=== PATIENT | male | born 1970 | race Caucasian/White ===

== ENCOUNTER 2021-09-12 09:39 | Emergency (ER) | payer MEDICAID ==
[~2021-09-12] VITALS: Ht 177.8 cm; Wt 84.8 kg
--- NOTE | 2021-09-12 10:00 | NUR ---
TO ER BED 9. BIBS AND AT BEDSIDE W/ COMPLAINT OF ABDOMINAL PAIN, RATED 6/10, PAIN UPON PALPATION.
--- NOTE | 2021-09-12 10:15 | NUR ---
DR. ALMEIDA AT BEDSIDE W/ PATIENT.
--- NOTE | 2021-09-12 10:18 | NUR ---
IV LINE ESTABLISHED ON RIGHT HAND #20, BLOOD DRAWN AND SENT TO LAB, LINE SALINE LOCKED.
--- NOTE | 2021-09-12 10:21 | NUR ---
PATIENT DOES NOT REQUEST FOR PAIN MEDICATION AT THIS TIME.
[2021-09-12 10:26] LABS: BASOPHILS % (AUTO) 0.4 % (0.0-2.0); EOSINOPHILS % (AUTO) 1.9 % (0.0-6.0); HEMATOCRIT 42 % (39-51); HEMOGLOBIN 14.5 g/dL (13.5-17.5); LYMPHOCYTES # (AUTO) 2.2 K/uL (0.8-4.8); LYMPHOCYTES % (AUTO) 29.5 % (20.0-44.0); MEAN CORPUSCULAR HGB CONC 34 g/dl (31.0-36.0); MEAN CORPUSCULAR VOLUME 91 fL (80-96); MONOCYTES # (AUTO) 0.6 K/uL (0.1-1.30); MONOCYTES % (AUTO) 8.5 % (2.0-12.0); NEUTROPHILS # (AUTO) 4.5 K/uL (1.8-8.9); NEUTROPHILS % (AUTO) 59.7 % (43.0-81.0); PLATELET COUNT (AUTO) 199 K/uL (150-450); RED BLOOD CELL COUNT(AUTO) 4.66 MIL/uL (4.5-6.0); WHITE BLOOD COUNT (AUTO) 7.6 K/uL (4.3-11.0)
[2021-09-12 10:27] LABS: BILIRUBIN,URINE NEGATIVE (NEGATIVE); COLOR,URINE YELLOW (YELLOW); LEUKOCYTE ESTERASE ,URINE NEGATIVE (NEGATIVE); NITRITE, URINE NEGATIVE (NEGATIVE); PROTEIN,URINE NEGATIVE (NEGATIVE); UGLUCOSE NEGATIVE (NEGATIVE); UROBILINOGEN,URINE 0.2 EU/dL (0.2)
[2021-09-12] MEDS: IV NS 0.9% 1,000 ML BAG IV ONE (10:32)
[2021-09-12 10:47] LABS: ALBUMIN 3.7 g/dL (3.4-5.0); BILIRUBIN,DIRECT 0.1 mg/dL (0.0-0.2); BILIRUBIN,TOTAL 0.5 mg/dL (0.2-1.0); CALCIUM, SERUM 8.7 mg/dL (8.5-10.1); CREATININE 0.8 mg/dL (0.6-1.3); POTASSIUM 3.9 mmol/L (3.5-5.1); TOTAL PROTEIN, SERUM 6.9 g/dL (6.4-8.2)
[2021-09-12] MEDS ORDERED: CT SWABBABLE VALVE TRANS SET 1 EA INFUS.SET MC ONE (11:11)
[2021-09-12] MEDS ORDERED: IV NS 0.9% 250 ML IV ONE (11:11)
[2021-09-12] MEDS ORDERED: IOHEXOL-300 100 ML VIAL IV ONE (11:11)
--- NOTE | 2021-09-12 11:23 | NUR ---
TAKEN TO RADIOLOGY VIA PIO
[2021-09-12 11:48] LABS: BACTERIA,URINE None seen /HPF (None Seen); SQUAMOUS EPITHELIAL CELL,UR 0-2 /HPF (None Seen); WBC,URINE NONE SEEN /HPF (0-3)
--- NOTE | 2021-09-12 11:51 | NUR ---
RETURNED FROM RADIOLOGY. PATIENT REQUESTED TO BE OFF IV FLUIDS. STILL HAS SOME ABD PAIN BUT DOES NOT WANT ANY PAIN MEDICATION AT THIS TIME.
[2021-09-12] MEDS ORDERED: CIPR500T5 PO (12:29)
[2021-09-12] MEDS ORDERED: METR500T PO (12:29)
[2021-09-12 12:32] VITALS: BP 125/75
--- NOTE | 2021-09-12 12:39 | NUR ---
PATIENT INFORMED THAT CD OF IMAGING STUDY IS BEING ORDERED BY PATIENT ALREADY INSISTED TO LEAVE. HARD COPY OF LAB AND CT SCAN GIVEN AND ACCEPTED BY PATIENT.
--- NOTE | 2021-09-12 12:40 | NUR ---
Patient discharged to home in stable condition. Written and verbal after care instructions given. Patient verbalizes understanding of instruction. IV line removed; no bleeding noted.
== END 2021-09-12 12:40 | disposition home or self-care (01) ==
LOC: ER 09:39
DX: K52.9 Noninfective gastroenteritis and colitis, unspecified (principal); R10.84 Generalized abdominal pain; J45.909 Unspecified asthma, uncomplicated; Z86.69 Personal history of other diseases of the nervous system and sense organs; Z79.899 Other long term (current) drug therapy
CPT/HCPCS: 36415; 74177; 80048; 80076; 81001; 83605; 83690; 85025; 96360; 99285; J7030; J7050; Q9967

== ENCOUNTER 2022-08-20 22:57 | Emergency (ER) | payer MEDICAID, OTHER ==
[~2022-08-20] VITALS: Ht 177.8 cm; Wt 103.4 kg
[~2022-08-20 22:57] MED LIST: CIPR500T5 PO; METR500T PO
[2022-08-20 23:26] VITALS: BP 149/85
[2022-08-20] MEDS ORDERED: TETRAcaine 5 ML BOTTLE EACHEYE ONE (23:30)
[2022-08-20] MEDS ORDERED: FLUORESCEIN SODIUM OPHTH 1 EA STRIP OP ONE (23:30)
[2022-08-20] MEDS ORDERED: FLUORESCEIN SODIUM OPHTH 1 EA STRIP ONE (23:33)
[2022-08-20] MEDS ORDERED: ERYT3.5O9 RIGHTEYE (23:48)
[2022-08-20] MEDS ORDERED: OXYC-128 PO (23:48)
[2022-08-20] MEDS ORDERED: HYDROCODONE/APAP 5/325MG TABLET ONE (23:52)
--- NOTE | 2022-08-20 23:56 | NUR ---
Patient discharged to home in stable condition. Written and verbal after care instructions given. Patient verbalizes understanding of instruction.
[2022-08-21] MEDS ORDERED: HYDROCODONE/APAP 5/325MG TABLET PO ONE
== END 2022-08-20 23:57 | disposition home or self-care (01) ==
LOC: ER 23:07
DX: S05.01XA Injury of conjunctiva and corneal abrasion without foreign body, right eye, initial encounter (principal); J45.909 Unspecified asthma, uncomplicated; Z79.899 Other long term (current) drug therapy; X58.XXXA Exposure to other specified factors, initial encounter; Y93.89 Activity, other specified; Y92.89 Other specified places as the place of occurrence of the external cause; Y99.8 Other external cause status

== ENCOUNTER 2023-07-23 12:39 | Emergency (ER) | payer MEDICAID, OTHER ==
[~2023-07-23] VITALS: Ht 177.8 cm; Wt 93.0 kg
[~2023-07-23 12:39] MED LIST changes: +ERYT3.5O9 RIGHTEYE; +OXYC-128 PO
[2023-07-23] MEDS ORDERED: NAPR-1009 PO (14:14)
[2023-07-23 14:36] VITALS: BP 121/66; TEMP 98.7; O2SAT 100
== END 2023-07-23 14:36 | disposition home or self-care (01) ==
LOC: ER 12:53
DX: R51.9 Headache, unspecified (principal); R42 Dizziness and giddiness; J45.909 Unspecified asthma, uncomplicated
CPT/HCPCS: 70450-TC

== ENCOUNTER 2023-12-30 13:13 | Emergency (ER) | payer MEDICAID, OTHER ==
[~2023-12-30] VITALS: Ht 177.8 cm; Wt 82.6 kg
[~2023-12-30 13:13] MED LIST changes: +NAPR-1009 PO
[2023-12-30] MEDS ORDERED: KETOROLAC TROMETHAMINE INJ 30 MG/ML VIAL ONE (14:12)
[2023-12-30] MEDS: KETOROLAC TROMETHAMINE INJ 60 MG/2 ML VIAL IM ONE (14:28)
[2023-12-30] MEDS ORDERED: METHOCARBAMOL (750MG) 750 MG TABLET PO SCH (14:30)
[2023-12-30] MEDS: METHOCARBAMOL (750MG) 750 MG TABLET PO ONE (14:33)
[2023-12-30] MEDS ORDERED: METH-647 PO (15:07)
[2023-12-30] MEDS ORDERED: IBUP-1957 PO (15:07)
[2023-12-30 15:48] VITALS: BP 118/86; TEMP 98.1; O2SAT 99
== END 2023-12-30 15:48 | disposition home or self-care (01) ==
LOC: ER 13:21
DX: S16.1XXA Strain of muscle, fascia and tendon at neck level, initial encounter (principal); S39.012A Strain of muscle, fascia and tendon of lower back, initial encounter; S09.8XXA Other specified injuries of head, initial encounter; J45.909 Unspecified asthma, uncomplicated; E78.5 Hyperlipidemia, unspecified; V89.2XXA Person injured in unspecified motor-vehicle accident, traffic, initial encounter; Y93.89 Activity, other specified; Y92.410 Unspecified street and highway as the place of occurrence of the external cause; Y99.8 Other external cause status
CPT/HCPCS: 99285; 72125; 96372; 70450; 72131; J1885

== ENCOUNTER 2025-02-07 13:44 | Emergency (ER) | payer OTHER ==
[~2025-02-07] VITALS: Ht 177.8 cm; Wt 87.1 kg
[~2025-02-07 13:44] MED LIST changes: +IBUP-1957 PO; +METH-647 PO
[2025-02-07 16:05] VITALS: BP 129/81; TEMP 98; O2SAT 99
== END 2025-02-07 16:06 | disposition left against medical advice (07) ==
LOC: ER 13:50
DX: S09.90XA Unspecified injury of head, initial encounter (principal); E78.5 Hyperlipidemia, unspecified; J45.909 Unspecified asthma, uncomplicated; I10 Essential (primary) hypertension; Z79.82 Long term (current) use of aspirin; V43.52XA Car driver injured in collision with other type car in traffic accident, initial encounter; Y93.89 Activity, other specified; Y92.410 Unspecified street and highway as the place of occurrence of the external cause; Y99.8 Other external cause status